=== PATIENT | male | born 1990 | race Caucasian/White ===

== ENCOUNTER → 2017-05-19 | Outpatient (CLI) | payer OTHER ==
[~2017-05-19] MED LIST: ALL60; REVIEWED
--- NOTE | 2017-05-22 16:34 | POLYSOMNOGRAPH REPORT ---
CLINICAL DATA: A 26-year-old male with BMI of 31.[address] Medina with a history of loud snoring and apneic episodes. On the evening of 05/20/2017, a home sleep apnea test was performed using a S[employer]ore type 3 monitor. RECORDING RESULTS: Total recording time was 10 hours. The patient's monitoring time and estimated sleep time was 7.9 hours. RESPIRATORY DATA: Moderate sleep apnea was documented. The TERESO was 18.8. There were 38 obstructive, 11 mixed and 11 central apneic episodes. There were 89 hypopneic episodes. The longest respiratory event was 59 seconds. OXIMETRY DATA: Transient nocturnal hypoxemia was seen. Oxygen chelsey was 80%. Mean saturation was 93%. Time below 89% was 4 minutes. HEART RATE DATA: Heart rate ranged from 63-83 beats per minute. SNORING DATA: Snoring was recorded through the night. IMPRESSION: Moderate sleep apnea/hypopnea with an TERESO of 18.8. RECOMMENDATIONS: The patient may benefit from use of an oral appliance, positional therapy, or repeat sleep study with CPAP. Clinical correlation is needed. MANNIED
== END | disposition home or self-care (01) ==
LOC: C.NEUR 09:23
PROVIDERS: ATTEND Family Medicine
DX: G47.30 Sleep apnea, unspecified (principal)